=== PATIENT | female | born 1950 | race Caucasian/White ===

== ENCOUNTER 2016-06-18 13:49 | Observation (INO) | payer MEDICARE ==
[~2016-06-18] VITALS: Ht 172.7 cm; Wt 77.7 kg
[~2016-06-18 13:49] MED LIST: ALPR.25T PO; ALPR0.254; AMLO5TAB2; AMX500CIP PO; ATEN50TA PO; BACL10TA PO; BPR150TCR PO; BSP10T PO; BUSP10TA95 PO; CEPH-507 PO; CYCL10TA9 PO; DOXY100C2 PO; DOXY150T9 PO; DULO60CA6 PO; GABA-488 PO; GABA600T2 PO; HYDR200T46 PO; Hydrochlorothiazide PO; IBP800T PO; IBUP800T26 PO; LORA10CA PO; LOSA1TAB20 PO; LOSA50TA6 PO; METO-274 PO; Metoprolol Succinate PO; NITR100C3 PO; ONDA4TAB2 PO; ONDN4T PO; PNT40TEC PO; PRM25T PO; TRAM50TA2 PO; TRAZ150T42 PO; TRZ100T PO
[2016-06-18] MEDS ORDERED: LACTATED RINGERS 1,000 ML IV ONE ×2 (14:28→18:39)
--- NOTE | 2016-06-18 14:35 | ED Psychosocial ---
General Chief Complaint: Substance Abuse Stated Complaint: INTOXICATED Nursing Triage Note: c/o etoh intoxication. Pt being loud and obnoxious. Pt apparently had been drinking vodka. Source: patient (POOR HISTORIAN--UNABLE TO OBTAIN ANY SIGNIFICANT INFORMATION FROM PT DUE TO INTOXICATION--PT REPEATS PHRASES OVER AND OVER, AND DOES NOT ANSWER MANY QUESTIONS ), EMS History of Present Illness Time seen by provider: 14:15 Initial Comments PT ARRIVES VIA EMS FROM HOME EMS STATES THAT THEY WERE CALLED TO ASSIST PT INTO HOME PT IS INTOXICATED AT SOME POINT, THE PT TOLD EMS SHE WANTED TO , AND HAD TOLD THE SAME TO POLICE WHO WERE AT THE SCENE PRIOR TO EMS ARRIVAL THERE. 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 ), " I'M DRUNK" "I'M AN ALCOHOLIC" PCP: DR. LYON Allergies and Home Medications Allergies Coded Allergies: No Known Drug Allergies (Unverified , 08/08/13) Home Medications 25 MG TAB #30 25 MG PO DAILY@0900 Prescribed by: BIANCA BENAVIDES on 09/21/14 1308 Cephalexin 500 Mg Capsule #21 500 MG PO TID Prescribed by: ANNELISE SANTOS on 07/20/15 2218 Cyclobenzaprine Hcl 10 Mg Tablet 10 MG PO TID (Reported) Doxycycline Hyclate 100 Mg Capsule 100 MG PO BID PRN PRN INFECTION (Reported) Duloxetine Hcl 60 Mg Capsule.dr 60 MG PO DAILY (Reported) 08-12-14 #30 LAST FILL Gabapentin 600 Mg Tablet #270 1 MG PO TID (Reported) Hydroxychloroquine Sulfate 200 Mg Tab 200 MG PO TID PRN PRN INFECTION (Reported ) Ibuprofen 800 Mg Tablet 800 MG PO TID PRN PRN PAIN (Reported) 07-25-14 #90 LAST FILLED Losartan Potassium 50 Mg Tablet #30 100 MG PO DAILY Prescribed by: BIANCA BENAVIDES on 09/21/14 1308 Metoprolol Succinate 100 Mg Tab.er.24h #30 100 MG PO DAILY (Reported) Ondansetron Hcl 4 Mg Tablet 4 MG PO Q8H PRN PRN NAUSEA (Reported) 08-12-14 #30 LAST FILLED Pantoprazole Sod 40 Mg Tab 40 MG PO DAILY (Reported) Trazodone Hcl 150 Mg Tablet 150 MG PO HS (Reported) Constitutional: other (UNABLE TO OBTAIN FROM PT DUE TO INTOXICATION) Past Yeboced-Ocoihl-Xatgvv Hx Patient Social History Alcohol Use: Regular Use Recreational Drug Use: Yes (NONE RECENT.) Smoking Status: Current Everyday Smoker (1 PPD) Type Used: Cigarettes Recent Foreign Travel: No Contact w/Someone Who Travel: No Recent Infectious Disease Expo: No Physical Abuse Screen: No Sexual Abuse: No Immunizations Up To Date Tetanus Booster (TDap): Less than 5yrs Date of Pneumonia Vaccine: Jun 29, 2014 Date of Influenza Vaccine: Jun 29, 2014 Seasonal Allergies Seasonal Allergies: No Surgeries HX Surgeries: Yes (left mastectomy, plate in right arm, l4 l5 surgery) Surgeries: Breast Respiratory Hx Respiratory Disorders: No Respiratory Disorders: Pneumonia Cardiovascular Hx Cardiac Disorders: Yes Neurological Hx Neurological Disorders: No Reproductive System Hx Reproductive Disorders: No Sexually Transmitted Disease: No HIV/AIDS: No Female Reproductive Disorders: Denies Genitourinary Hx Genitourinary Disorders: No Gastrointestinal Hx Gastrointestinal Disorders: No Gastrointestinal Disorders: C-Diff Musculoskeletal Hx Musculoskeletal Disorders: Yes Musculoskeletal Disorders: Arthritis, Back Injury Endocrine Hx Endocrine Disorders: No HEENT HX ENT Disorders: Yes HEENT Disorders: Cataract, Glaucoma Loss of Vision: Left Hearing Impairment: Denies Cancer Hx Cancer: Yes (LEFT BREAST REMOVED.) Cancer: Breast Psychosocial Hx Psychiatric Problems: Yes Behavioral Health Disorders: Anxiety, Bipolar, Depression Integumentary HX Skin/Integumentary Disorder: No Blood Transfusions Hx Blood Disorders: No Adverse Reaction to a Blood Tr: No Family Medical History Other ALL OF THE ABOVE IS FROM OLD CHART--PT UNABLE TO GIVE ANY RELEVANT INFORMATION Family Medial History: Alcoholism Physical Exam Vital Signs Vital Sign - Last 12Hours 06/18/16 13:49 Temp 97.2 Pulse 86 Resp 16 B/P 125/83 Pulse Ox 97 O2 Delivery Room Air Capillary Refill : Less Than 3 Seconds General Appearance: WD/WN no apparent distress other (LOUD, CURSING, BELLIGERANT AT TIMES. SPEECH CLEAR, BUT TALKS NON-STOP AND REPEATS HERSELF MULTIPLE TIMES) HEENT: PERRL/EOMI normal ENT inspection Neck: normal inspection Respiratory: normal breath sounds no respiratory distress no accessory muscle use Cardiovascular: regular rate, rhythm no murmur Gastrointestinal: normal bowel sounds non tender soft no organomegaly Extremities: normal inspection no pedal edema no calf tenderness normal capillary refill Neurologic/Psychiatric: bargeman II-XII nml as tested no motor/sensory deficits alert other ( ABOVE) Behavior/Eye Contact: cooperative Thoughts/Hallucinations: no apparent hallucination Skin: normal color warm/dry Progress/Results/Core Measures Results/Orders Lab Results Laboratory Tests Test 06/18/16 14:25 06/18/16 15:35 Range/Units Alanine Aminotransferase (ALT/SGPT) 26 0-55 U/L Albumin 4.0 3.2-4.5 G/DL Alkaline Phosphatase 69 40-136 U/L Anion Gap 20 H 5-14 MMOL/L Aspartate Amino Transf (AST/SGOT) 32 5-34 U/L BUN/Creatinine Ratio 19 Basophils # (Auto) 0.0 0.0-0.1 10^3/uL Basophils (%) (Auto) 0 0-10 % Blood Urea Nitrogen 16 7-18 MG/DL Calcium Level 8.8 8.5-10.1 MG/DL Carbon Dioxide Level 17 L 21-32 MMOL/L Chloride Level 103 98-107 MMOL/L Creatinine 0.86 0.60-1.30 MG/DL Eosinophils # (Auto) 0.3 0.0-0.3 10^3/uL Eosinophils (%) (Auto) 3 0-10 % Estimat Glomerular Filtration Rate > 60 Glucose Level 82 70-105 MG/DL Hematocrit 40 35-52 % Hemoglobin 13.6 11.5-16.0 G/DL Lymphocytes # (Auto) 3.9 1.0-4.0 X 10^3 Lymphocytes (%) (Auto) 42 12-44 % Magnesium Level 1.9 1.8-2.4 MG/DL Mean Corpuscular Hemoglobin 30 25-34 PG Mean Corpuscular Hemoglobin Concent 34 32-36 G/DL Mean Corpuscular Volume 87 80-99 FL Mean Platelet Volume 9.3 7.4-10.4 FL Monocytes # (Auto) 0.3 0.0-1.0 X 10^3 Monocytes (%) (Auto) 3 0-12 % Neutrophils # (Auto) 4.8 1.8-7.8 X 10^3 Neutrophils (%) (Auto) 52 42-75 % Platelet Count 293 130-400 10^3/uL Potassium Level 4.3 3.6-5.0 MMOL/L Red Blood Count 4.61 4.35-5.85 10^6/uL Red Cell Distribution Width 13.5 10.0-14.5 % Serum Alcohol 280 H <10 MG/DL Sodium Level 140 135-145 MMOL/L TSH [place] Testing 1.02 0.35-4.94 UIU/ML Total Bilirubin 0.2 0.1-1.0 MG/DL Total Protein 6.8 6.4-8.2 G/DL White Blood Count 9.2 4.3-11.0 10^3/uL Ur Tricyclic Antidepressants Screen NEGATIVE NEGATIVE Urine Amphetamines Screen NEGATIVE NEGATIVE Urine Bacteria NEGATIVE /HPF Urine Barbiturates Screen NEGATIVE NEGATIVE Urine Benzodiazepines Screen NEGATIVE NEGATIVE Urine Bilirubin NEGATIVE NEGATIVE Urine Cannabinoids Screen NEGATIVE NEGATIVE Urine Casts NONE /LPF Urine Clarity CLEAR Urine Cocaine Screen NEGATIVE NEGATIVE Urine Color YELLOW Urine Crystals NONE /LPF Urine Culture Indicated NO Urine Glucose (UA) NEGATIVE NEGATIVE Urine Ketones NEGATIVE NEGATIVE Urine Leukocyte Esterase NEGATIVE NEGATIVE Urine Methadone Screen NEGATIVE NEGATIVE Urine Methamphetamines Screen NEGATIVE NEGATIVE Urine Mucus NEGATIVE /LPF Urine Nitrite NEGATIVE NEGATIVE Urine Opiates Screen NEGATIVE NEGATIVE Urine Oxycodone Screen POSITIVE H NEGATIVE Urine Phencyclidine Screen NEGATIVE NEGATIVE Urine Propoxyphene Screen NEGATIVE NEGATIVE Urine Protein NEGATIVE NEGATIVE Urine RBC NONE /HPF Urine RBC (Auto) NEGATIVE NEGATIVE Urine Specific [place] 1.010 L 1.016-1.022 Urine Squamous Epithelial Cells 10-25 H /HPF Urine Urobilinogen NORMAL NORMAL MG/DL Urine WBC NONE /HPF Urine pH 6 5-9 My Orders Orders-CHRIS ESCALANTE DO Saline Lock/Iv-Start (06/18/16 14:28) Alcohol (06/18/16 14:28) Cbc With Automated Diff (06/18/16 14:28) Comprehensive Metabolic Panel (06/18/16 14:28) Drug Screen Stat (Urine) (06/18/16 14:28) Magnesium (06/18/16 14:28) Thyroid Analyzer (06/18/16 14:28) Ua Culture If Indicated (06/18/16 14:28) Saline Lock/Iv-Start (06/18/16 14:28) Lactated Ringers (Lr 1000 Ml Iv Solution (06/18/16 14:28) Medications Given in ED Current Medications Medications Dose Ordered Sig/Rabia Route Start Time Stop Time Status Last Admin Dose Admin Lactated Ringer's 1,000 ml @ 0 mls/hr Q0M ONCE IV 06/18/16 14:28 06/18/16 14:30 DC 06/18/16 16:32 100 MLS/HR Vital Signs/I&O Vital Sign - Last 12Hours 06/18/16 06/18/16 13:49 17:46 Temp 97.2 Pulse 86 76 Resp 16 16 B/P 125/83 Pulse Ox 97 97 O2 Delivery Room Air Room Air Progress Note : Progress Note NO DETERIORATION IN PT'S CONDITION DURING ER STAY Departure Communication Progress Notes 3121--SPOKE WITH DR. JOSEPH, ACCEPTS PT FOR ADMIT. Impression Impression: Primary Impression: Alcohol intoxication Additional Impression: Alcohol abuse Disposition: ADMITTED INPATIENT Condition: Stable/Unchanged Decision to Admit Reason: Admit from ER (General) Decision to Admit/Date: Jun 18, 2016 Time/Decision to Admit Time: 15:35 Departure-Patient Inst. Referrals: TANIKA LYON MD (PCP/Family) Primary Care Physician CHRIS ESCALANTE DO Jun 18, 2016 14:35
[2016-06-18 14:36] LABS: BASOPHILS % (AUTO) 0 % (0-10); EOSINOPHILS # (AUTO) 0.3 10^3/uL (0.0-0.3); EOSINOPHILS % (AUTO) 3 % (0-10); LYMPHOCYTES # (AUTO) 3.9 X 10^3 (1.0-4.0); LYMPHOCYTES % (AUTO) 42 % (12-44); MEAN CORPUSCULAR HEMOGLOBIN 30 PG (25-34); MEAN CORPUSCULAR HGB CONC 34 G/DL (32-36); MEAN CORPUSCULAR VOLUME 87 FL (80-99); MEAN PLATELET VOLUME 9.3 FL (7.4-10.4); MONOCYTES # (AUTO) 0.3 X 10^3 (0.0-1.0); MONOCYTES % (AUTO) 3 % (0-12); NEUTROPHILS # (AUTO) 4.8 X 10^3 (1.8-7.8); NEUTROPHILS % (AUTO) 52 % (42-75); PLATELET COUNT 293 10^3/uL (130-400); RED BLOOD COUNT 4.61 10^6/uL (4.35-5.85); RED CELL DISTRIBUTION WIDTH 13.5 % (10.0-14.5); WHITE BLOOD COUNT 9.2 10^3/uL (4.3-11.0)
[2016-06-18 14:56] LABS: ALANINE AMINOTRANSFERASE 26 U/L (0-55); ALCOHOL 280 MG/DL (<10); ANION GAP 20 MMOL/L (5-14); ASPARTATE AMINO TRANSFERASE 32 U/L (5-34); BILIRUBIN,TOTAL 0.2 MG/DL (0.1-1.0); BLOOD UREA NITROGEN 16 MG/DL (7-18); BUN/CREATININE RATIO 19; CALCIUM 8.8 MG/DL (8.5-10.1); CARBON DIOXIDE 17 MMOL/L (21-32); CHLORIDE 103 MMOL/L (98-107); CREATININE SERUM 0.86 MG/DL (0.60-1.30); GFR ESTIMATED > 60; GLUCOSE 82 MG/DL (70-105); MAGNESIUM 1.9 MG/DL (1.8-2.4); POTASSIUM 4.3 MMOL/L (3.6-5.0); SODIUM 140 MMOL/L (135-145); TOTAL PROTEIN 6.8 G/DL (6.4-8.2)
[2016-06-18 15:42] LABS: BILIRUBIN,URINE NEGATIVE (NEGATIVE); KETONES,URINE NEGATIVE (NEGATIVE); LEUKOCYTE ESTERASE ,URINE NEGATIVE (NEGATIVE); NITRITE,URINE NEGATIVE (NEGATIVE); PH,URINE 6 (5-9); PROTEIN,URINE NEGATIVE (NEGATIVE); UROBILINOGEN,URINE NORMAL (NORMAL)
[2016-06-18 18:05] VITALS: BP 167/95
[2016-06-18 19:00] VITALS: BP 149/63
[2016-06-18 20:00] VITALS: BP 146/84
[2016-06-18] MEDS ORDERED: IBUPROFEN TABLET 200 MG TAB PO ONE (21:14)
[2016-06-18] MEDS: THIAMINE 100 MG (VITAMIN B-1) TAB PO SCH (21:23)
[2016-06-18] MEDS: FOLIC ACID 1 MG TAB PO SCH (21:23)
[2016-06-18] MEDS: MAGNESIUM OXIDE (MAG-OX)400 MG TAB PO SCH (21:23)
[2016-06-18] MEDS: IBUPROFEN 600 MG (MOTRIN) TAB PO PRN (21:27)
[2016-06-18] MEDS: MULTIVIT W/MINERALS TAB (THERAGRAN M) PO SCH (21:27)
[2016-06-18 22:23] VITALS: BP 138/80
[2016-06-18 23:24] VITALS: BP 133/76
[2016-06-18] MEDS: LACTATED RINGERS 1,000 ML IV SCH (23:55)
[2016-06-19] MEDS: ONDANSETRON 4 MG/2 ML (SDV) Z0FRAN IVP PRN ×2 (00:39→08:08)
[2016-06-19] MEDS: LACTATED RINGERS 1,000 ML IV SCH ×2 (01:30→04:56)
[2016-06-19] MEDS: IBUPROFEN 600 MG (MOTRIN) TAB PO PRN (03:24)
[2016-06-19 04:00] VITALS: BP 166/84
[2016-06-19] MEDS: MULTIVIT W/MINERALS TAB (THERAGRAN M) PO SCH (06:30)
[2016-06-19] MEDS: THIAMINE 100 MG (VITAMIN B-1) TAB PO SCH (06:30)
[2016-06-19] MEDS ORDERED: MULTIVIT W/MINERALS TAB (THERAGRAN M) PO SCH (07:00)
[2016-06-19] MEDS ORDERED: THIAMINE 100 MG (VITAMIN B-1) TAB PO SCH (07:00)
[2016-06-19 08:00] VITALS: BP 153/83
[2016-06-19] MEDS ORDERED: FOLIC ACID 1 MG TAB PO SCH (09:00)
[2016-06-19] MEDS: MAGNESIUM OXIDE (MAG-OX)400 MG TAB PO SCH (09:28)
[2016-06-19] MEDS: FOLIC ACID 1 MG TAB PO SCH (09:28)
--- NOTE | 2016-06-19 10:23 | Short Stay Summary ---
HPI History of Present Illness: 66 yo F known alcoholic that states she fell off the wagon for the new year. She is very interested in sobriety and states that she has been sober for a few months. Last night she was extremely intoxicated and states that she does not remember how much she had to drink. She was very confused and was unable to get in her house. She denies any other symptoms. This AM she is feeling much better. Has tolerated food and drink. Denies any withdrawal symptoms. Had a BM this am Source: patient, old records Exam Limitations: no limitations Date seen by provider: Jun 19, 2016 Time seen by provider: 09:15 Attending Physician Ale Al Bethany N MD Consult Date of Admission Jun 18, 2016 at 17:00 Home Medications Home Medications Reviewed patient Home Medication Reconciliation Form Allergies Coded Allergies: No Known Drug Allergies (Unverified , 08/08/13) SUJ-Pjrbui-Zreizu Hx Patient Social History Alcohol Use: Regular Use Recreational Drug Use: No Smoking Status: Current Everyday Smoker Type Used: Cigarettes Recent Foreign Travel: No Contact w/other who traveled: No Recent Hopitalizations: No Recent Infectious Disease Expo: No Physical Abuse Screen: No Sexual Abuse: No Immunizations Up To Date Tetanus Booster (TDap): Less than 5yrs Date of Pneumonia Vaccine: Apr 18, 2016 Date of Influenza Vaccine: Mar 18, 2016 Past Medical History Alcohol Abuse Bipolar Disorder Family Medical History Family History: Alcoholism Review of Systems ([facility]) Constitutional: no symptoms reportedNo chills, No dizziness, No fever, No weakness EENTM: no symptoms reported Respiratory: no symptoms reportedNo cough, No dyspnea on exertion, No hemoptysis, No short of breath Cardiovascular: no symptoms reportedNo chest pain, No edema, No palpitations Gastrointestinal: no symptoms reportedNo constipation, No diarrhea, No hematemesis, No heartburn, nauseaNo vomiting Genitourinary: no symptoms reportedNo dysuria, No frequency, No hematuria : No Musculoskeletal: no symptoms reportedNo back pain, No joint pain Skin: no symptoms reportedNo rash Psychiatric/Neurological: Anxiety HeadacheDenies Numbness, Denies Seizure, Denies Weakness All Other Systems Reviewed Negative Unless Noted: Yes Reviewed Test Results Reviewed Test Results Lab Laboratory Tests Test 06/18/16 14:25 06/18/16 15:35 Range/Units Alanine Aminotransferase (ALT/SGPT) 26 0-55 U/L Albumin 4.0 3.2-4.5 G/DL Alkaline Phosphatase 69 40-136 U/L Anion Gap 20 H 5-14 MMOL/L Aspartate Amino Transf (AST/SGOT) 32 5-34 U/L BUN/Creatinine Ratio 19 Basophils # (Auto) 0.0 0.0-0.1 10^3/uL Basophils (%) (Auto) 0 0-10 % Blood Urea Nitrogen 16 7-18 MG/DL Calcium Level 8.8 8.5-10.1 MG/DL Carbon Dioxide Level 17 L 21-32 MMOL/L Chloride Level 103 98-107 MMOL/L Creatinine 0.86 0.60-1.30 MG/DL Eosinophils # (Auto) 0.3 0.0-0.3 10^3/uL Eosinophils (%) (Auto) 3 0-10 % Estimat Glomerular Filtration Rate > 60 Glucose Level 82 70-105 MG/DL Hematocrit 40 35-52 % Hemoglobin 13.6 11.5-16.0 G/DL Lymphocytes # (Auto) 3.9 1.0-4.0 X 10^3 Lymphocytes (%) (Auto) 42 12-44 % Magnesium Level 1.9 1.8-2.4 MG/DL Mean Corpuscular Hemoglobin 30 25-34 PG Mean Corpuscular Hemoglobin Concent 34 32-36 G/DL Mean Corpuscular Volume 87 80-99 FL Mean Platelet Volume 9.3 7.4-10.4 FL Monocytes # (Auto) 0.3 0.0-1.0 X 10^3 Monocytes (%) (Auto) 3 0-12 % Neutrophils # (Auto) 4.8 1.8-7.8 X 10^3 Neutrophils (%) (Auto) 52 42-75 % Platelet Count 293 130-400 10^3/uL Potassium Level 4.3 3.6-5.0 MMOL/L Red Blood Count 4.61 4.35-5.85 10^6/uL Red Cell Distribution Width 13.5 10.0-14.5 % Serum Alcohol 280 H <10 MG/DL Sodium Level 140 135-145 MMOL/L TSH [place] Testing 1.02 0.35-4.94 UIU/ML Total Bilirubin 0.2 0.1-1.0 MG/DL Total Protein 6.8 6.4-8.2 G/DL White Blood Count 9.2 4.3-11.0 10^3/uL Ur Tricyclic Antidepressants Screen NEGATIVE NEGATIVE Urine Amphetamines Screen NEGATIVE NEGATIVE Urine Bacteria NEGATIVE /HPF Urine Barbiturates Screen NEGATIVE NEGATIVE Urine Benzodiazepines Screen NEGATIVE NEGATIVE Urine Bilirubin NEGATIVE NEGATIVE Urine Cannabinoids Screen NEGATIVE NEGATIVE Urine Casts NONE /LPF Urine Clarity CLEAR Urine Cocaine Screen NEGATIVE NEGATIVE Urine Color YELLOW Urine Crystals NONE /LPF Urine Culture Indicated NO Urine Glucose (UA) NEGATIVE NEGATIVE Urine Ketones NEGATIVE NEGATIVE Urine Leukocyte Esterase NEGATIVE NEGATIVE Urine Methadone Screen NEGATIVE NEGATIVE Urine Methamphetamines Screen NEGATIVE NEGATIVE Urine Mucus NEGATIVE /LPF Urine Nitrite NEGATIVE NEGATIVE Urine Opiates Screen NEGATIVE NEGATIVE Urine Oxycodone Screen POSITIVE H NEGATIVE Urine Phencyclidine Screen NEGATIVE NEGATIVE Urine Propoxyphene Screen NEGATIVE NEGATIVE Urine Protein NEGATIVE NEGATIVE Urine RBC NONE /HPF Urine RBC (Auto) NEGATIVE NEGATIVE Urine Specific [place] 1.010 L 1.016-1.022 Urine Squamous Epithelial Cells 10-25 H /HPF Urine Urobilinogen NORMAL NORMAL MG/DL Urine WBC NONE /HPF Urine pH 6 5-9 Physical Exam-([facility]) Physical Exam Vital Signs VS - Last 72 Hours, by Label 06/18/16 06/18/16 06/18/16 06/18/16 13:49 17:46 18:00 18:05 Temp 97.2 97.8 Pulse 86 76 101 Resp 16 16 18 B/P 125/83 167/95 Pulse Ox 97 97 98 O2 Delivery Room Air Room Air Room Air Room Air 06/18/16 06/18/16 06/18/16 06/18/16 19:00 19:00 20:00 22:23 Temp 98.5 97.3 98.3 Pulse 96 95 94 95 Resp 18 16 16 B/P 149/63 146/84 138/80 Pulse Ox 96 98 96 O2 Delivery Room Air Room Air Room Air 06/18/16 06/19/16 06/19/16 06/19/16 23:24 01:00 04:00 07:00 Temp 97.6 97.7 Pulse 98 110 98 107 Resp 18 18 B/P 133/76 166/84 Pulse Ox 94 97 O2 Delivery Room Air Room Air 06/19/16 08:00 Temp 98.8 Pulse 106 Resp 16 B/P 153/83 Pulse Ox 97 O2 Delivery Room Air Capillary Refill : Less Than 3 Seconds General Appearance: WD/WN no apparent distress HEENT: PERRL/EOMI normal ENT inspection TMs normal pharynx normal Neck: non-tender full range of motion supple normal inspection Respiratory: chest non-tender lungs clear normal breath sounds no respiratory distress no accessory muscle use Cardiovascular: regular rate, rhythm no edema no gallop no JVD no murmur Gastrointestinal: normal bowel sounds non tender soft no organomegaly no pulsatile massNo distended, No tenderness Extremities: normal range of motion non-tender normal inspection no calf tenderness normal capillary refill other (trace edema equal bilaterally) Neurologic/Psychiatric: clay transporter II-XII nml as tested no motor/sensory deficits alert normal mood/affect oriented x 3 Skin: normal color warm/dry Lymphatic: no adenopathy Short Stay Diagnosis Discharge Diagnosis-Short Stay Admission Diagnosis Altered Mental status Alcohol Intoxication Final Discharge Diagnosis same as above Conclusion Plan 66 yo F with known alcoholism admitted for altered mental status 2/2 to acute intoxication Plan Altered Mental Status: At baseline this AM - Most likely 2/2 to acute intoxication Alcoholism with acute Intoxication - Discussed outpatient addiction treatment center at [facility], She is interested, Will send referral - Encouraged patient to call sponsor and go to AA meeting HTN: uncontrolled this AM - Restart home meds Dispo: Home today, will follow up on 06/27/[address] Hurtado Clinical Quality Measures DVT/VTE Risk/Contraindication: Risk Factor Score Per Nursin RFS Level Per Nursing on Admit: 3=High Copy Copies To 1: TANIKA HURTADO MD, HOLLY R MD Jun 19, 2016 10:22
--- NOTE | 2016-06-19 10:33 | Discharge Instructions ---
Discharge Inst-[facility] Discharge Medications New, Converted or Re-Newed RX: Other (No Scripts needed) Patient Instructions Goal/Follow Up Appt: You have a f/u appt with Dr Hurtado on Jun 27@ 120PM at [facility] - The outpatient treatment center will call you to set up follow up Patient Instructions: - Be sure to contact you sponsor and get to your AA meeting Return to The Hospital For: Fever Unable to keep down medications Chest pain Shortness of breath Activity & Diet Discharge Diet: No Restrictions Activity as Tolerated: Yes Orders-Post D/C & Referrals - Referral to outpatient addiction treatment at [facility] Copy Copies To 1: TANIKA HURTADO MD, HOLLY R MD Jun 19, 2016 10:33
[2016-06-19 11:45] VITALS: BP 153/83
== END 2016-06-19 10:29 | disposition home or self-care (01) ==
LOC: EDUNIT# 13:49 → ER 13:50 → UNDOADMOB 17:00 → 4TH 17:00
PROVIDERS: ADMIT Family Medicine; ATTEND Family Medicine
DX: F10.220 Alcohol dependence with intoxication, uncomplicated (principal); I10 Essential (primary) hypertension; F17.210 Nicotine dependence, cigarettes, uncomplicated
CPT/HCPCS: 36415; 80053; 80306; 80320; 81000; 83735; 84443; 85025; 96360; G0378

== ENCOUNTER 2016-11-21 23:07 | Emergency (ER) | payer MEDICARE ==
[~2016-11-21] VITALS: Ht 172.7 cm; Wt 90.7 kg
[2016-11-21] MEDS ORDERED: HYDR50TA76 PO (23:13)
--- NOTE | 2016-11-21 23:20 | ED Psychosocial ---
General Chief Complaint: Psych/Social Disorder Stated Complaint: DRUNK,SUICIDAL Nursing Triage Note: BROUGHT IN BY [facility] REPORTED THAT PT TOLD [place] [employer] SHE WISHES TO KILL HERSELF. Source: patient Exam Limitations: no limitations, intoxication History of Present Illness Time seen by provider: 23:12 Initial Comments Here with report of alcohol intoxication and apparently told the [place] police department that she had suicidal thoughts. She does not have specific plan and states maybe she would hang herself although she is not committed to that. She reports that she has been depressed for 10 years because of her bipolar disorder. Does admit to drinking quite a bit of alcohol tonight. States she does not really want to stay. Denies any other concerns or injuries. Timing/Duration: this evening Severity: moderate Associated Symptoms: other (intoxication with suicidal expressions) Allergies and Home Medications Allergies Coded Allergies: No Known Drug Allergies (Unverified , 08/08/13) Home Medications Gabapentin 600 Mg Tablet, 1 MG PO TID, #270 (Reported) Hydroxychloroquine Sulfate 200 Mg Tab, 200 MG PO TID, (Reported) Hydroxyzine HCl 50 Mg Tablet, #90 (Reported) Losartan Potassium 50 Mg Tablet, 100 MG PO DAILY, #30 Ref 1 Prescribed by: BIANCA BENAVIDES on 09/21/14 1308 Metoprolol Succinate 100 Mg Tab.er.24h, 100 MG PO HS, #30 (Reported) Pantoprazole Sod 40 Mg Tab, 40 MG PO DAILY, (Reported) Trazodone Hcl 150 Mg Tablet, 150 MG PO HS, (Reported) [Hydrochlorothiazide] 25 MG TAB, 25 MG PO DAILY@0900, #30 Ref 1 Prescribed by: BIANCA BENAVIDES on 09/21/14 1308 Date Seen by Provider: Nov 21, 2016 Time Seen by Provider: 23:12 Constitutional: see HPI EENTM: no symptoms reported Respiratory: no symptoms reported Cardiovascular: no symptoms reported Gastrointestinal: no symptoms reported Genitourinary: no symptoms reported Musculoskeletal: no symptoms reported Skin: no symptoms reported Psychiatric/Neurological: See HPI, Anxiety, Emotional Problems Past Lsrvikk-Qkjpxh-Dpvgff Hx Patient Social History Alcohol Use: Regular Use Recreational Drug Use: Yes Smoking Status: Current Everyday Smoker Type Used: Cigarettes 2nd Hand Smoke Exposure: Yes Recent Foreign Travel: No Contact w/Someone Who Travel: No Recent Infectious Disease Expo: No Recent Hopitalizations: No Immunizations Up To Date Tetanus Booster (TDap): Less than 5yrs Date of Pneumonia Vaccine: Apr 18, 2016 Date of Influenza Vaccine: Mar 18, 2016 Seasonal Allergies Seasonal Allergies: No Surgeries HX Surgeries: Yes (left mastectomy, plate in right arm, l4 l5 surgery) Surgeries: Breast Respiratory Hx Respiratory Disorders: No Respiratory Disorders: Pneumonia Cardiovascular Hx Cardiac Disorders: Yes Cardiac Disorders: Hypertension Neurological Hx Neurological Disorders: No Reproductive System : No Hx Reproductive Disorders: No Sexually Transmitted Disease: No HIV/AIDS: No Female Reproductive Disorders: Denies INFORMATION TECHNOLOGY ADVISOR History: Menopausal Genitourinary Hx Genitourinary Disorders: No Gastrointestinal Hx Gastrointestinal Disorders: Yes Gastrointestinal Disorders: Gastroesophageal Reflux, C-Diff Musculoskeletal Hx Musculoskeletal Disorders: Yes Musculoskeletal Disorders: Arthritis, Back Injury Endocrine Hx Endocrine Disorders: No HEENT HX ENT Disorders: Yes HEENT Disorders: Cataract, Glaucoma Loss of Vision: Left Hearing Impairment: Denies Cancer Hx Cancer: Yes (LEFT BREAST REMOVED.) Cancer: Breast Psychosocial Hx Psychiatric Problems: Yes Behavioral Health Disorders: Anxiety, Bipolar, Depression Integumentary HX Skin/Integumentary Disorder: No Blood Transfusions Hx Blood Disorders: No Adverse Reaction to a Blood Tr: No Reviewed Nursing Assessment Reviewed/Agree w Nursing PMH: Yes Family Medical History Family Medial History: Alcoholism Physical Exam Vital Signs Vital Sign - Last 12Hours 11/21/16 23:13 Temp 97.1 Pulse 89 Resp 18 B/P (MAP) 141/94 Pulse Ox 97 O2 Delivery Room Air Capillary Refill : Less Than 3 Seconds General Appearance: WD/WN, no apparent distress HEENT: PERRL/EOMI, pharynx normal Neck: full range of motion, supple Respiratory: lungs clear, normal breath sounds Cardiovascular: regular rate, rhythm, no murmur Gastrointestinal: non tender, soft Extremities: normal range of motion, non-tender, normal inspection Neurologic/Psychiatric: alert, oriented x 3 Appearance/Memory: disheveled Behavior/Eye Contact: other (occasionally belligerent but calms when spoken to softly. Somewhat slurred speech but answers all questions and follows commands appropriately.) Thoughts/Hallucinations: no apparent hallucination Skin: normal color, warm/dry Progress/Results/Core Measures Results/Orders Lab Results Laboratory Tests Test 11/21/16 23:20 Range/Units White Blood Count 7.4 4.3-11.0 10^3/uL Red Blood Count 4.54 4.35-5.85 10^6/uL Hemoglobin 13.4 11.5-16.0 G/DL Hematocrit 41 35-52 % Mean Corpuscular Volume 91 80-99 FL Mean Corpuscular Hemoglobin 30 25-34 PG Mean Corpuscular Hemoglobin Concent 33 32-36 G/DL Red Cell Distribution Width 15.6 H 10.0-14.5 % Platelet Count 257 130-400 10^3/uL Mean Platelet Volume 8.6 7.4-10.4 FL Neutrophils (%) (Auto) 29 L 42-75 % Lymphocytes (%) (Auto) 59 H 12-44 % Monocytes (%) (Auto) 6 0-12 % Eosinophils (%) (Auto) 4 0-10 % Basophils (%) (Auto) 1 0-10 % Neutrophils # (Auto) 2.2 1.8-7.8 X 10^3 Lymphocytes # (Auto) 4.4 H 1.0-4.0 X 10^3 Monocytes # (Auto) 0.5 0.0-1.0 X 10^3 Eosinophils # (Auto) 0.3 0.0-0.3 10^3/uL Basophils # (Auto) 0.1 0.0-0.1 10^3/uL Sodium Level 148 H 135-145 MMOL/L Potassium Level 3.8 3.6-5.0 MMOL/L Chloride Level 112 H 98-107 MMOL/L Carbon Dioxide Level 21 21-32 MMOL/L Anion Gap 15 H 5-14 MMOL/L Blood Urea Nitrogen 12 7-18 MG/DL Creatinine 0.92 0.60-1.30 MG/DL Estimat Glomerular Filtration Rate > 60 BUN/Creatinine Ratio 13 Glucose Level 86 70-105 MG/DL Calcium Level 9.1 8.5-10.1 MG/DL Total Bilirubin 0.2 0.1-1.0 MG/DL Aspartate Amino Transf (AST/SGOT) 26 5-34 U/L Alanine Aminotransferase (ALT/SGPT) 19 0-55 U/L Alkaline Phosphatase 87 40-136 U/L Total Protein 6.9 6.4-8.2 G/DL Albumin 3.9 3.2-4.5 G/DL Salicylates Level < 5.0 L 5.0-20.0 MG/DL Acetaminophen Level < 10 L 10-30 UG/ML Serum Alcohol 332 *H <10 MG/DL My Orders Orders - ELI MCDONALD MD Ua Culture If Indicated (11/21/16 23:17) Cbc With Automated Diff (11/21/16 23:17) Comprehensive Metabolic Panel (11/21/16 23:17) Alcohol (11/21/16 23:17) Drug Screen Stat (Urine) (11/21/16 23:17) Acetaminophen (11/21/16 23:17) Salicylate (11/21/16 23:17) Ekg Tracing (11/21/16 23:17) Saline Lock/Iv-Start (11/21/16 23:17) Vital Signs/I&O Vital Sign - Last 12Hours 11/21/16 11/22/16 23:13 00:32 Temp 97.1 97.1 Pulse 89 103 Resp 18 20 B/P (MAP) 141/94 Pulse Ox 97 97 O2 Delivery Room Air Blood Pressure Mean: 110 Progress Note : Progress Note Seen and evaluated. States that she doesn't really want help but would be okay with exam and evaluation. This was initiated. EKG, labs and UA ordered. Monitor patient. 2340: Patient states that she is no longer suicidal and wants to go home. 0015: Patient is requesting a cab and again states that she is not suicidal. Labs reviewed. Patient did not give urine sample. ECG Initial ECG Impression Date: Nov 22, 2016 Initial ECG Impression Time: 23:22 Initial ECG Rate: 88 Initial ECG Rhythm: Normal Sinus Comment Sinus rhythm with normal axis and no evidence of ST elevation HI. Similar to previous of 07/20/15. Interpreted by me. Departure Impression Impression: Primary Impression: Alcohol abuse Additional Impression: Alcohol intoxication Qualified Codes: F10.920 - Alcohol use, unspecified with intoxication, uncomplicated Disposition: 01 HOME, SELF-CARE Condition: Stable Departure-Patient Inst. Decision time for Depature: 00:20 Referrals: TANIKA LYON MD (PCP/Family) Primary Care Physician Patient Instructions: ALCOHOL AND SUBSTANCE ABUSE Add. Discharge Instructions: All discharge instructions reviewed with patient and/or family. Voiced understanding. Refrain from drinking alcohol. Drink plenty of fluids. Eat a normal diet. Return for worse pain, fever, vomiting, weakness, breathing problems or other concerns as needed. Follow-up with your doctor and your mental health provider in one to 2 days for recheck and further evaluation. ELI MCDONALD MD Nov 21, 2016 23:20
[2016-11-21 23:31] LABS: BASOPHILS # (AUTO) 0.1 10^3/uL (0.0-0.1); BASOPHILS % (AUTO) 1 % (0-10); EOSINOPHILS # (AUTO) 0.3 10^3/uL (0.0-0.3); EOSINOPHILS % (AUTO) 4 % (0-10); LYMPHOCYTES # (AUTO) 4.4 X 10^3 (1.0-4.0); LYMPHOCYTES % (AUTO) 59 % (12-44); MEAN CORPUSCULAR HEMOGLOBIN 30 PG (25-34); MEAN CORPUSCULAR HGB CONC 33 G/DL (32-36); MEAN CORPUSCULAR VOLUME 91 FL (80-99); MEAN PLATELET VOLUME 8.6 FL (7.4-10.4); MONOCYTES # (AUTO) 0.5 X 10^3 (0.0-1.0); MONOCYTES % (AUTO) 6 % (0-12); NEUTROPHILS # (AUTO) 2.2 X 10^3 (1.8-7.8); NEUTROPHILS % (AUTO) 29 % (42-75); PLATELET COUNT 257 10^3/uL (130-400); RED BLOOD COUNT 4.54 10^6/uL (4.35-5.85); RED CELL DISTRIBUTION WIDTH 15.6 % (10.0-14.5); WHITE BLOOD COUNT 7.4 10^3/uL (4.3-11.0)
[2016-11-21 23:52] LABS: ALANINE AMINOTRANSFERASE 19 U/L (0-55); ALBUMIN 3.9 G/DL (3.2-4.5); ANION GAP 15 MMOL/L (5-14); ASPARTATE AMINO TRANSFERASE 26 U/L (5-34); BILIRUBIN,TOTAL 0.2 MG/DL (0.1-1.0); BLOOD UREA NITROGEN 12 MG/DL (7-18); BUN/CREATININE RATIO 13; CALCIUM 9.1 MG/DL (8.5-10.1); CARBON DIOXIDE 21 MMOL/L (21-32); CHLORIDE 112 MMOL/L (98-107); CREATININE SERUM 0.92 MG/DL (0.60-1.30); GFR ESTIMATED > 60; GLUCOSE 86 MG/DL (70-105); POTASSIUM 3.8 MMOL/L (3.6-5.0); SALICYLATE < 5.0 MG/DL (5.0-20.0); SODIUM 148 MMOL/L (135-145); TOTAL PROTEIN 6.9 G/DL (6.4-8.2)
[2016-11-21 23:55] LABS: ACETAMINOPHEN < 10 UG/ML (10-30)
[2016-11-21 23:56] LABS: ALCOHOL 332 MG/DL (<10)
[2016-11-22 00:32] VITALS: BP 135/101
[2016-11-23] MEDS ORDERED: HYDR25TA4 PO (08:30)
[2016-11-23] MEDS ORDERED: LOSA100T28 PO (08:30)
[2016-11-23] MEDS ORDERED: GABA-488 PO (08:30)
[2016-11-23] MEDS ORDERED: DULO60CA58 PO (08:30)
[2016-11-23] MEDS ORDERED: ONDA4TAB11 PO (08:37)
[2016-11-23] MEDS ORDERED: TIZA2TAB3 PO (08:37)
[2016-11-23] MEDS ORDERED: CALC-654 PO (08:38)
== END 2016-11-22 00:28 | disposition home or self-care (01) ==
LOC: EDUNIT# 23:07 → ER 23:08
DX: F10.129 Alcohol abuse with intoxication, unspecified (principal); F41.8 Other specified anxiety disorders; F31.9 Bipolar disorder, unspecified; I10 Essential (primary) hypertension; F17.210 Nicotine dependence, cigarettes, uncomplicated
CPT/HCPCS: 36415; 80053; 80320; 80329; 85025; 93005

== ENCOUNTER 2016-12-13 17:53 | Emergency (ER) | payer MEDICARE ==
[~2016-12-13] VITALS: Ht 172.7 cm; Wt 79.5 kg
[~2016-12-13 17:53] MED LIST changes: +CALC-654 PO; +DULO60CA58 PO; +HYDR25TA4 PO; +HYDR50TA76 PO; +LOSA100T28 PO; +ONDA4TAB11 PO; +TIZA2TAB3 PO
--- OUTSIDE RECORDS SUMMARY | 2016-12-13 18:01 | XMS REPORT | Continuity of Care Document ---
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 (number/volume) 0.5 10*3 0.0-1.0 Automated eosinophil count 0.3 10*3/uL 0.0-0.3 Automated blood basophil count (count/volume) 0.1 10*3/uL 0.0-0.1 Comprehensive metabolic panel - 11/21/16 23:20 Serum or plasma sodium measurement (moles/volume) 148 mmol/ L 135-145 Serum or plasma potassium measurement (moles/volume) 3.8 mmol/L 3.6-5.0 Serum or plasma chloride measurement (moles/volume) 112 mmol /L 98-107 Carbon dioxide 21 mmol/L 21-32 Serum or plasma anion gap determination (moles/volume) 15 mmol/L 5-14 Serum or plasma urea nitrogen measurement (mass/volume) 12 mg/dL 7-18 Serum or plasma creatinine measurement (mass/volume) 0.92 mg /dL 0.60-1.30 Serum or plasma urea nitrogen/creatinine mass ratio 13 NRG Serum or plasma creatinine measurement with calculation of estimated glomerular filtration rate > NRG Serum or plasma glucose measurement (mass/volume) 86 mg/dL 70-105 Serum or plasma calcium measurement (mass/volume) 9.1 mg/dL 8.5-10.1 Serum or plasma total bilirubin measurement (mass/volume) 0.2 mg/dL 0.1-1.0 Serum or plasma alkaline phosphatase measurement (enzymatic activity/volume) 87 U/L 40-136 Serum or plasma aspartate aminotransferase measurement (enzymatic activity/ volume) 26 U/L 5-34 Serum or plasma alanine aminotransferase measurement (enzymatic activity/volume ) 19 U/L 0-55 Serum or plasma protein measurement (mass/volume) 6.9 g/dL 6.4-8.2 Serum or plasma albumin measurement (mass/volume) 3.9 g/dL 3.2-4.5 Serum or plasma salicylates measurement (mass/volume) - 11/21/16 23:20 Serum or plasma salicylates measurement (mass/volume) < mg/ dL 5.0-20.0 Serum or plasma acetaminophen measurement (mass/volume) - 11/21/16 23:20 Serum or plasma acetaminophen measurement (mass/volume) < ug /mL 10-30 Serum or plasma ethanol measurement (mass/volume) - 11/21/16 23:20 Serum or plasma ethanol measurement (mass/volume) 332 mg/dL <10 Complete blood count (CBC) with automated white blood cell (WBC) differential - 11/22/16 21:55 Blood leukocytes automated count (number/volume) 7.2 10*3/ uL 4.3-11.0 Blood erythrocytes automated count (number/volume) 5.01 10*6 /uL 4.35-5.85 Venous blood hemoglobin measurement (mass/volume) 14.8 g/dL 11.5-16.0 Blood hematocrit (volume fraction) 45 % 35-52 Automated erythrocyte mean corpuscular volume 90 [foz_us] 80-99 Automated erythrocyte mean corpuscular hemoglobin (mass per erythrocyte) 30 pg 25-34 Automated erythrocyte mean corpuscular hemoglobin concentration measurement ( mass/volume) 33 g/dL 32-36 Automated erythrocyte distribution width ratio 15.9 % 10.0-14.5 Automated blood platelet count (count/volume) 290 10*3/uL 130-400 Automated blood platelet mean volume measurement 9.0 [foz_us ] 7.4-10.4 Automated blood neutrophils/100 leukocytes 44 % 42-75 Automated blood lymphocytes/100 leukocytes 46 % 12-44 Blood monocytes/100 leukocytes 6 % 0-12 Automated blood eosinophils/100 leukocytes 4 % 0-10 Automated blood basophils/100 leukocytes 1 % 0-10 Blood neutrophils automated count (number/volume) 3.1 10*3 1.8-7.8 Blood lymphocytes automated count (number/volume) 3.3 10*3 1.0-4.0 Blood monocytes automated count (number/volume) 0.4 10*3 0.0-1.0 Automated eosinophil count 0.3 10*3/uL 0.0-0.3 Automated blood basophil count (count/volume) 0.1 10*3/uL 0.0-0.1 Comprehensive metabolic panel - 11/22/16 21:55 Serum or plasma sodium measurement (moles/volume) 146 mmol/ L 135-145 Serum or plasma potassium measurement (moles/volume) 4.0 mmol/L 3.6-5.0 Serum or plasma chloride measurement (moles/volume) 108 mmol /L 98-107 Carbon dioxide 19 mmol/L 21-32 Serum or plasma anion gap determination (moles/volume) 19 mmol/L 5-14 Serum or plasma urea nitrogen measurement (mass/volume) 15 mg/dL 7-18 Serum or plasma creatinine measurement (mass/volume) 0.90 mg /dL 0.60-1.30 Serum or plasma urea nitrogen/creatinine mass ratio 17 NRG Serum or plasma creatinine measurement with calculation of estimated glomerular filtration rate > NRG Serum or plasma glucose measurement (mass/volume) 91 mg/dL 70-105 Serum or plasma calcium measurement (mass/volume) 9.5 mg/dL 8.5-10.1 Serum or plasma total bilirubin measurement (mass/volume) 0.2 mg/dL 0.1-1.0 Serum or plasma alkaline phosphatase measurement (enzymatic activity/volume) 101 U/L 40-136 Serum or plasma aspartate aminotransferase measurement (enzymatic activity/ volume) 35 U/L 5-34 Serum or plasma alanine aminotransferase measurement (enzymatic activity/volume ) 23 U/L 0-55 Serum or plasma protein measurement (mass/volume) 7.9 g/dL 6.4-8.2 Serum or plasma albumin measurement (mass/volume) 4.2 g/dL 3.2-4.5 Serum or plasma salicylates measurement (mass/volume) - 11/22/16 21:55 Serum or plasma salicylates measurement (mass/volume) < mg/ dL 5.0-20.0 Serum or plasma acetaminophen measurement (mass/volume) - 11/22/16 21:55 Serum or plasma acetaminophen measurement (mass/volume) < ug /mL 10-30 Serum or plasma ethanol measurement (mass/volume) - 11/22/16 21:55 Serum or plasma ethanol measurement (mass/volume) 259 mg/dL <10 Serum or plasma troponin i.cardiac measurement (mass/volume) - 11/22/16 21:55 Serum or plasma troponin i.cardiac measurement (mass/volume) < ng/mL <0.30 Complete blood count (CBC) with automated white blood cell (WBC) differential - 11/23/16 04:58 Blood leukocytes automated count (number/volume) 5.3 10*3/ uL 4.3-11.0 Blood erythrocytes automated count (number/volume) 4.17 10*6 /uL 4.35-5.85 Venous blood hemoglobin measurement (mass/volume) 12.3 g/dL 11.5-16.0 Blood hematocrit (volume fraction) 38 % 35-52 Automated erythrocyte mean corpuscular volume 91 [foz_us] 80-99 Automated erythrocyte mean corpuscular hemoglobin (mass per erythrocyte) 30 pg 25-34 Automated erythrocyte mean corpuscular hemoglobin concentration measurement ( mass/volume) 33 g/dL 32-36 Automated erythrocyte distribution width ratio 15.5 % 10.0-14.5 Automated blood platelet count (count/volume) 238 10*3/uL 130-400 Automated blood platelet mean volume measurement 9.0 [foz_us ] 7.4-10.4 Automated blood neutrophils/100 leukocytes 48 % 42-75 Automated blood lymphocytes/100 leukocytes 41 % 12-44 Blood monocytes/100 leukocytes 8 % 0-12 Automated blood eosinophils/100 leukocytes 3 % 0-10 Automated blood basophils/100 leukocytes 1 % 0-10 Blood neutrophils automated count (number/volume) 2.5 10*3 1.8-7.8 Blood lymphocytes automated count (number/volume) 2.2 10*3 1.0-4.0 Blood monocytes automated count (number/volume) 0.4 10*3 0.0-1.0 Automated eosinophil count 0.2 10*3/uL 0.0-0.3 Automated blood basophil count (count/volume) 0.1 10*3/uL 0.0-0.1 Comprehensive metabolic panel - 11/23/16 04:58 Serum or plasma sodium measurement (moles/volume) 141 mmol/ L 135-145 Serum or plasma potassium measurement (moles/volume) 3.4 mmol/L 3.6-5.0 Serum or plasma chloride measurement (moles/volume) 108 mmol /L 98-107 Carbon dioxide 19 mmol/L 21-32 Serum or plasma anion gap determination (moles/volume) 14 mmol/L 5-14 Serum or plasma urea nitrogen measurement (mass/volume) 14 mg/dL 7-18 Serum or plasma creatinine measurement (mass/volume) 0.87 mg /dL 0.60-1.30 Serum or plasma urea nitrogen/creatinine mass ratio 16 NRG Serum or plasma creatinine measurement with calculation of estimated glomerular filtration rate > NRG Serum or plasma glucose measurement (mass/volume) 146 mg/dL 70-105 Serum or plasma calcium measurement (mass/volume) 8.4 mg/dL 8.5-10.1 Serum or plasma total bilirubin measurement (mass/volume) 0.4 mg/dL 0.1-1.0 Serum or plasma alkaline phosphatase measurement (enzymatic activity/volume) 85 U/L 40-136 Serum or plasma aspartate aminotransferase measurement (enzymatic activity/ volume) 25 U/L 5-34 Serum or plasma alanine aminotransferase measurement (enzymatic activity/volume ) 18 U/L 0-55 Serum or plasma protein measurement (mass/volume) 6.2 g/dL 6.4-8.2 Serum or plasma albumin measurement (mass/volume) 3.5 g/dL 3.2-4.5 Complete urinalysis with reflex to culture - 11/23/16 10:40 Urine color determination YELLOW NRG Urine clarity determination CLEAR NRG Urine pH measurement by test strip 6.5 5 -9 Specific gravity of urine by test strip 1.015 1.016-1.022 Urine protein assay by test strip, semi-quantitative NEGATIVE NEGATIVE Urine glucose detection by automated test strip NEGATIVE NEGATIVE Erythrocytes detection in urine sediment by light microscopy 1+ NEGATIVE Urine ketones detection by automated test strip NEGATIVE NEGATIVE Urine nitrite detection by test strip NEGATIVE NEGATIVE Urine total bilirubin detection by test strip NEGATIVE NEGATIVE Urine urobilinogen measurement by automated test strip (mass/volume) NORMAL NORMAL Urine leukocyte esterase detection by dipstick NEGATIVE NEGATIVE Automated urine sediment erythrocyte count by microscopy (number/high power field) [HPF] NRG Automated urine sediment leukocyte count by microscopy (number/high power field ) RARE NRG Bacteria detection in urine sediment by light microscopy FEW NRG Squamous epithelial cells detection in urine sediment by light microscopy 0-2 NRG Crystals detection in urine sediment by light microscopy NONE NRG Casts detection in urine sediment by light microscopy NONE NRG Mucus detection in urine sediment by light microscopy NEGATIVE NRG Complete urinalysis with reflex to culture NO NRG Urine drug screening test - 11/23/16 10:40 Urine phencyclidine detection by screening method NEGATIVE NEGATIVE Urine benzodiazepines detection by screening method POSITIVE NEGATIVE Urine cocaine detection NEGATIVE NEGATIVE Urine amphetamines detection by screening method NEGATIVE NEGATIVE Urine methamphetamine detection by screening method NEGATIVE NEGATIVE Urine cannabinoids detection by screening method NEGATIVE NEGATIVE Urine opiates detection by screening method NEGATIVE NEGATIVE Urine barbiturates detection NEGATIVE NEGATIVE Screening urine tricyclic antidepressants detection NEGATIVE NEGATIVE Urine methadone detection by screening method NEGATIVE NEGATIVE Urine oxycodone detection NEGATIVE NEGATIVE Urine propoxyphene detection NEGATIVE NEGATIVE Encounters ACCT No. Visit Date/Time Discharge Status Pt. Type Provider Facility Loc./Unit Complaint [id number] 10/16/2014 12:16:00 10/16/2014 23: 59:59 CLS Outpatient BAILEE JOSEPH DO [id number] 09/30/2014 10:17:00 09/30/2014 23: 59:59 CLS Outpatient TANIKA LYON MD [id number] 09/01/2014 11:40:00 09/01/2014 23: 59:59 CLS Outpatient TANIKA LYON MD [id number] 07/15/2014 10:27:00 07/15/2014 23: 59:59 CLS Outpatient TANIKA LYON MD [id number] 06/25/2014 09:35:00 06/25/2014 23: 59:59 CLS Outpatient TANIKA LYON MD [id number] 06/03/2014 13:24:00 06/03/2014 23: 59:59 CLS Outpatient BAILEE JOSEPH DO [id number] 05/21/2014 14:23:00 05/21/2014 23: 59:59 CLS Outpatient TANIKA LYON MD [id number] 08/06/2012 09:06:00 08/06/2012 23: 59:59 CLS Outpatient [id number] 07/30/2012 09:09:00 07/30/2012 23: 59:59 CLS Outpatient
[2016-12-13 18:30] LABS: BASOPHILS # (AUTO) 0.1 10^3/uL (0.0-0.1); BASOPHILS % (AUTO) 1 % (0-10); EOSINOPHILS # (AUTO) 0.2 10^3/uL (0.0-0.3); EOSINOPHILS % (AUTO) 4 % (0-10); LYMPHOCYTES # (AUTO) 2.7 X 10^3 (1.0-4.0); LYMPHOCYTES % (AUTO) 50 % (12-44); MEAN CORPUSCULAR HEMOGLOBIN 30 PG (25-34); MEAN CORPUSCULAR HGB CONC 34 G/DL (32-36); MEAN CORPUSCULAR VOLUME 88 FL (80-99); MONOCYTES # (AUTO) 0.3 X 10^3 (0.0-1.0); MONOCYTES % (AUTO) 5 % (0-12); NEUTROPHILS # (AUTO) 2.1 X 10^3 (1.8-7.8); NEUTROPHILS % (AUTO) 41 % (42-75); PLATELET COUNT 292 10^3/uL (130-400); RED BLOOD COUNT 4.25 10^6/uL (4.35-5.85); RED CELL DISTRIBUTION WIDTH 14.8 % (10.0-14.5); WHITE BLOOD COUNT 5.3 10^3/uL (4.3-11.0)
[2016-12-13] MEDS ORDERED: IBUPROFEN TABLET 200 MG TAB PO STA (18:35)
--- NOTE | 2016-12-13 18:39 | ED Psychosocial ---
General Chief Complaint: Psych/Social Disorder Stated Complaint: INTOXICATED/SUICIDAL Nursing Triage Note: TO ED PER EMS WAS FOUND BY POLICE DEPT WANTING TO KILL SELL ON ADMIT REPORTS HAS BEEN DRINKING AND WANTS TO HARM SELF WHEN ASKED IF SHE HAD A PLAN STATES I DON NOT WANT TO DISCUSS IT NOW. PATIENT ALSO TO DISCUSS PMH Source: patient Exam Limitations: no limitations History of Present Illness Time seen by provider: 18:25 Initial Comments This 66-year-old woman presents to the emergency room with complaints of suicidal ideation. She was brought in by EMS after being found by police. She denies any suicidal ideation at the moment and denies any attempt or plan. She is clearly intoxicated and states she drank "too much vodka" today. She also complains of pain in the left foot and states she has not been able to ambulate on it. She states the left foot was x-rayed previously but I do not see x-rays on file at this hospital. Review of patient's chart reveals that this is her third encounter in November for alcohol-related issues. She was admitted November 22 for a similar scenario. The chart indicated she intended to enroll in outpatient alcohol rehabilitation. Allergies and Home Medications Allergies Coded Allergies: No Known Drug Allergies (Unverified , 08/08/13) Home Medications Calcium Carbonate/Vitamin D3 1 Each Tablet, 1 TAB PO DAILY, (Reported) Duloxetine HCl 60 Mg Capsule.dr, 60 MG PO DAILY, (Reported) Gabapentin 300 Mg Capsule, 300 MG PO TID PRN for BACK PAIN, (Reported) Hydrochlorothiazide 25 Mg Tablet, 25 MG PO DAILY, (Reported) Hydroxyzine HCl 50 Mg Tablet, 50 MG PO TID PRN for ANXIETY, (Reported) Losartan Potassium 100 Mg Tablet, 100 MG PO DAILY, (Reported) Metoprolol Succinate 100 Mg Tab.er.24h, 100 MG PO HS, (Reported) Ondansetron 4 Mg Tab.rapdis, 4 MG PO Q8H PRN for NAUSEA/VOMITING-1ST LINE, ( Reported) Pantoprazole Sod 40 Mg Tab, 40 MG PO DAILY, (Reported) Tizanidine HCl 2 Mg Tablet, 2 MG PO TID PRN for MUSCLE SPASMS, (Reported) Trazodone Hcl 150 Mg Tablet, 150 MG PO HS, (Reported) Constitutional: see HPI, other (intoxicated) EENTM: no symptoms reported, see HPI Respiratory: no symptoms reported Cardiovascular: no symptoms reported Gastrointestinal: no symptoms reported Genitourinary: no symptoms reported : No Musculoskeletal: no symptoms reported Skin: no symptoms reported Psychiatric/Neurological: See HPI Past Grqeyst-Rlqnhr-Zcaxyi Hx Patient Social History Alcohol Use: Regular Use Recreational Drug Use: Yes Smoking Status: Current Everyday Smoker Type Used: Cigarettes 2nd Hand Smoke Exposure: Yes Recent Foreign Travel: No Contact w/Someone Who Travel: No Recent Infectious Disease Expo: No Recent Hopitalizations: Yes (she was here [facility] for EtOH intoxication) Immunizations Up To Date Tetanus Booster (TDap): Less than 5yrs Date of Pneumonia Vaccine: Apr 18, 2016 Date of Influenza Vaccine: Mar 18, 2016 Seasonal Allergies Seasonal Allergies: No Surgeries HX Surgeries: Yes (left mastectomy, plate in right arm, l4 l5 surgery) Surgeries: Breast Respiratory Hx Respiratory Disorders: Yes Respiratory Disorders: Pneumonia Cardiovascular Hx Cardiac Disorders: Yes Cardiac Disorders: Hypertension Neurological Hx Neurological Disorders: No Reproductive System Hx Reproductive Disorders: No Sexually Transmitted Disease: No HIV/AIDS: No Female Reproductive Disorders: Denies [employer] History: Menopausal Genitourinary Hx Genitourinary Disorders: No Gastrointestinal Hx Gastrointestinal Disorders: Yes Gastrointestinal Disorders: Gastroesophageal Reflux, C-Diff Musculoskeletal Hx Musculoskeletal Disorders: Yes Musculoskeletal Disorders: Back Injury, Chronic Back Pain (herniated disks) Endocrine Hx Endocrine Disorders: No HEENT HX ENT Disorders: Yes HEENT Disorders: Cataract, Glaucoma Loss of Vision: Left Hearing Impairment: Denies Cancer Hx Cancer: Yes (LEFT BREAST REMOVED.) Cancer: Breast Psychosocial Hx Psychiatric Problems: Yes Behavioral Health Disorders: Anxiety, Bipolar, Depression Integumentary HX Skin/Integumentary Disorder: No Blood Transfusions Hx Blood Disorders: No Adverse Reaction to a Blood Tr: No Family Medical History Significant Family History: Cancer, Diabetes, Hypertension Family Medial History: Alcoholism Physical Exam Vital Signs Vital Sign - Last 12Hours 12/13/16 17:53 Temp 98.0 Pulse 100 Resp 18 B/P (MAP) 179/99 Pulse Ox 94 O2 Delivery Room Air Capillary Refill : Less Than 3 Seconds General Appearance: WD/WN, no apparent distress HEENT: PERRL/EOMI, normal ENT inspection Neck: normal inspection Respiratory: no respiratory distress, no accessory muscle use, wheezing (mild) Cardiovascular: regular rate, rhythm, no edema, no murmur Gastrointestinal: normal bowel sounds, non tender, soft Extremities: normal inspection, no pedal edema, other (tenderness to the left ankle and distal dorsal left foot. Ecchymosis near the dorsum of the bace of the middle toes.) Neurologic/Psychiatric: back tender fourdrinier II-XII nml as tested, no motor/sensory deficits, alert, other (intoxicated and intermittently belligerent) Appearance/Memory: appropriate appearance Behavior/Eye Contact: cooperative, good eye contact, normal speech Thoughts/Hallucinations: other (intoxicated and giving inconsistent history about suicidal ideation) Skin: normal color, warm/dry, ecchymosis (distal left foot) Progress/Results/Core Measures Results/Orders Lab Results Laboratory Tests Test 12/13/16 18:06 12/13/16 21:15 Range/Units White Blood Count 5.3 4.3-11.0 10^3/uL Red Blood Count 4.25 L 4.35-5.85 10^6/uL Hemoglobin 12.6 11.5-16.0 G/DL Hematocrit 38 35-52 % Mean Corpuscular Volume 88 80-99 FL Mean Corpuscular Hemoglobin 30 25-34 PG Mean Corpuscular Hemoglobin Concent 34 32-36 G/DL Red Cell Distribution Width 14.8 H 10.0-14.5 % Platelet Count 292 130-400 10^3/uL Mean Platelet Volume 9.0 7.4-10.4 FL Neutrophils (%) (Auto) 41 L 42-75 % Lymphocytes (%) (Auto) 50 H 12-44 % Monocytes (%) (Auto) 5 0-12 % Eosinophils (%) (Auto) 4 0-10 % Basophils (%) (Auto) 1 0-10 % Neutrophils # (Auto) 2.1 1.8-7.8 X 10^3 Lymphocytes # (Auto) 2.7 1.0-4.0 X 10^3 Monocytes # (Auto) 0.3 0.0-1.0 X 10^3 Eosinophils # (Auto) 0.2 0.0-0.3 10^3/uL Basophils # (Auto) 0.1 0.0-0.1 10^3/uL Sodium Level 145 135-145 MMOL/L Potassium Level 4.0 3.6-5.0 MMOL/L Chloride Level 109 H 98-107 MMOL/L Carbon Dioxide Level 24 21-32 MMOL/L Anion Gap 12 5-14 MMOL/L Blood Urea Nitrogen 11 7-18 MG/DL Creatinine 0.83 0.60-1.30 MG/DL Estimat Glomerular Filtration Rate > 60 BUN/Creatinine Ratio 13 Glucose Level 99 70-105 MG/DL Calcium Level 9.0 8.5-10.1 MG/DL Total Bilirubin 0.2 0.1-1.0 MG/DL Aspartate Amino Transf (AST/SGOT) 26 5-34 U/L Alanine Aminotransferase (ALT/SGPT) 19 0-55 U/L Alkaline Phosphatase 65 40-136 U/L Total Protein 6.8 6.4-8.2 GM/DL Albumin 3.6 3.2-4.5 GM/DL Thyroid Stimulating Hormone (TSH) 0.49 0.35-4.94 UIU/ML Salicylates Level < 5.0 L 5.0-20.0 MG/DL Acetaminophen Level < 10 L 10-30 UG/ML Serum Alcohol 347 *H <10 MG/DL Urine Color YELLOW Urine Clarity CLEAR Urine pH 6 5-9 Urine Specific [place] 1.010 L 1.016-1.022 Urine Protein NEGATIVE NEGATIVE Urine Glucose (UA) NEGATIVE NEGATIVE Urine Ketones NEGATIVE NEGATIVE Urine Nitrite NEGATIVE NEGATIVE Urine Bilirubin NEGATIVE NEGATIVE Urine Urobilinogen NORMAL NORMAL MG/DL Urine Leukocyte Esterase NEGATIVE NEGATIVE Urine RBC (Auto) NEGATIVE NEGATIVE Urine RBC NONE /HPF Urine WBC RARE /HPF Urine Squamous Epithelial Cells 2-5 /HPF Urine Crystals NONE /LPF Urine Bacteria NEGATIVE /HPF Urine Casts NONE /LPF Urine Mucus NEGATIVE /LPF Urine Culture Indicated NO Urine Opiates Screen POSITIVE H NEGATIVE Urine Oxycodone Screen NEGATIVE NEGATIVE Urine Methadone Screen NEGATIVE NEGATIVE Urine Propoxyphene Screen NEGATIVE NEGATIVE Urine Barbiturates Screen NEGATIVE NEGATIVE Ur Tricyclic Antidepressants Screen NEGATIVE NEGATIVE Urine Phencyclidine Screen NEGATIVE NEGATIVE Urine Amphetamines Screen NEGATIVE NEGATIVE Urine Methamphetamines Screen NEGATIVE NEGATIVE Urine Benzodiazepines Screen NEGATIVE NEGATIVE Urine Cocaine Screen NEGATIVE NEGATIVE Urine Cannabinoids Screen NEGATIVE NEGATIVE My Orders Orders - REBEKA PEREZ MD Acetaminophen (12/13/16 18:24) Alcohol (12/13/16 18:24) Cbc With Automated Diff (12/13/16 18:24) Comprehensive Metabolic Panel (12/13/16 18:24) Drug Screen Stat (Urine) (12/13/16 18:24) Salicylate (12/13/16 18:24) Thyroid Stimulating Hormone (12/13/16 18:24) Ua Culture If Indicated (12/13/16 18:24) Foot, Left, 3 Views (12/13/16 18:39) Ankle, Left, 3 Views (12/13/16 18:39) Chest 1 View, Ap/Pa Only (12/13/16 19:37) Vital Signs/I&O Vital Sign - Last 12Hours 12/13/16 21:42 Pulse 98 Resp 16 Pulse Ox 97 Blood Pressure Mean: 125 Progress Note : Progress Note Case was discussed with Dr. Lyon who states this type of behavior is cyclical for the patient. Generally as the patient josesito her mentation and suicidal ideation improve. Patient was observed for a few hours and indeed her mentation and suicidal ideation improved. She demonstrated ability to ambulate safely. She was ultimately dismissed home with instructions for close follow- up. Dr. Lyon will try to arrange the follow-up as an outpatient. ECG Initial ECG Impression Date: Dec 13, 2016 Initial ECG Impression Time: 18:01 Initial ECG Rate: 96 Initial ECG Rhythm: Normal Sinus Initial ECG Intervals: Normal Initial ECG Impression: Normal Comment Normal sinus rhythm with no ST elevation or depression. No axis deviation or abnormal intervals. Diagnostic Imaging Diagonstic Imaging: Xray Plain Films/CT/US/NM/MRI: ankle Comments x-ray viewed by me and report reviewed. See report below: NAME: BAILEE [facility]STA[facility]EDA [facility] REC#: [id number] PT STATUS: REG ER : 1950 PHYSICIAN: REBEKA PEREZ MD ADMIT DATE: 12/13/16/ER Draft Date of Exam:12/13/16 ANKLE, LEFT, 3 VIEWS EXAMINATION: Left ankle series. INDICATION: Twisted ankle. Pain and swelling. FINDINGS: There is some soft tissue swelling overlying both the lateral and medial aspect of the ankle. Distal tibia and fibula demonstrate no cortical disruption to suggest acute fracture. The talar dome is normal in morphology. The visualized bones of the foot are unremarkable. IMPRESSION: Ankle soft tissue swelling without acute fracture or evidence of traumatic malalignment. Dictated on workstation # [id number] Dict: 12/13/161908 Trans: 12/13/161913 AS6 [id number] Interpreted by: RUDDY CHOI MD Diagonstic Imaging: Xray Plain Films/CT/US/NM/MRI: other (Left foot) Comments x-ray of the left viewed by me and report reviewed. See report below: NAME: BAILEE [facility]STAÑEDA [facility] REC#: [id number] PT STATUS: REG ER : 1950 PHYSICIAN: REBEKA PEREZ MD ADMIT DATE: 12/13/16/ER Draft Date of Exam:12/13/16 FOOT, LEFT, 3 VIEWS INDICATION: Left foot pain. COMPARISON: Left ankle radiographs performed concurrently. TECHNIQUE: Three nonweightbearing views of the left foot. FINDINGS: No acute fracture or traumatic malalignment by nonweightbearing imaging. Mild degenerative changes of the great toe MTP joint are noted. Joint spaces are mildly narrowed at the tarsometatarsal articulations as well as within the midfoot. IMPRESSION: 1. No acute fracture or traumatic malalignment of the left foot. 2. 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 Dictated on workstation # [id number] Dict: 12/13/161908 Trans: 12/13/161911 AS6 [id number] Interpreted by: HEATHER VOGT MD Departure Impression Impression: Primary Impression: Suicidal ideation Additional Impressions: Alcohol intoxication Qualified Codes: F10.929 - Alcohol use, unspecified with intoxication, unspecified Injury of left foot Qualified Codes: S99.922A - Unspecified injury of left foot, initial encounter Disposition: 01 HOME, SELF-CARE Condition: Improved Departure-Patient Inst. Decision time for Depature: 21:35 Referrals: TANIKA LYON MD (PCP/Family) Primary Care Physician Patient Instructions: ALCOHOL AND SUBSTANCE ABUSE Add. Discharge Instructions: Follow-up at [facility] as soon as possible for assistance with alcohol cessation. Call [phone] or [phone] if you have any further difficulties with suicidal thoughts. All discharge instructions reviewed with patient and/or family. Voiced understanding. REBEKA PEREZ MD Dec 13, 2016 18:39
[2016-12-13 18:44] LABS: ALANINE AMINOTRANSFERASE 19 U/L (0-55); ALBUMIN 3.6 GM/DL (3.2-4.5); ANION GAP 12 MMOL/L (5-14); ASPARTATE AMINO TRANSFERASE 26 U/L (5-34); BILIRUBIN,TOTAL 0.2 MG/DL (0.1-1.0); BLOOD UREA NITROGEN 11 MG/DL (7-18); BUN/CREATININE RATIO 13; CARBON DIOXIDE 24 MMOL/L (21-32); CHLORIDE 109 MMOL/L (98-107); CREATININE SERUM 0.83 MG/DL (0.60-1.30); GFR ESTIMATED > 60; GLUCOSE 99 MG/DL (70-105); SALICYLATE < 5.0 MG/DL (5.0-20.0); SODIUM 145 MMOL/L (135-145); TOTAL PROTEIN 6.8 GM/DL (6.4-8.2)
[2016-12-13 18:45] LABS: ACETAMINOPHEN < 10 UG/ML (10-30)
[2016-12-13 18:46] LABS: ALCOHOL 347 MG/DL (<10)
[2016-12-13 19:04] LABS: THYROID STIMULATING HORMONE 0.49 UIU/ML (0.35-4.94)
--- NOTE | 2016-12-13 19:13 | Diagnostic Imaging Report ---
INDICATION: Left foot pain. COMPARISON: Left ankle radiographs performed concurrently. TECHNIQUE: Three nonweightbearing views of the left foot. FINDINGS: No acute fracture or traumatic malalignment by nonweightbearing imaging. Mild degenerative changes of the great toe MTP joint are noted. Joint spaces are mildly narrowed at the tarsometatarsal articulations as well as within the midfoot. IMPRESSION: 1. No acute fracture or traumatic malalignment of the left foot. 2. 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 Dictated by: Dictated on workstation # [id number]
--- NOTE | 2016-12-13 19:14 | Diagnostic Imaging Report ---
EXAMINATION: Left ankle series. INDICATION: Twisted ankle. Pain and swelling. FINDINGS: There is some soft tissue swelling overlying both the lateral and medial aspect of the ankle. Distal tibia and fibula demonstrate no cortical disruption to suggest acute fracture. The talar dome is normal in morphology. The visualized bones of the foot are unremarkable. IMPRESSION: Ankle soft tissue swelling without acute fracture or evidence of traumatic malalignment. Dictated by: Dictated on workstation # [id number]
--- NOTE | 2016-12-13 19:55 | Diagnostic Imaging Report ---
EXAMINATION: Portable chest INDICATION: Cough. Comparison made to the prior study from November 22, 2016. FINDINGS: Compared to prior study, there has not been evidence of interval change. Heart size is stable without evidence of failure. There is no focal pulmonary infiltrate or consolidation demonstrated. There is no effusion or pneumothorax. There are surgical clips along the left lateral chest wall. IMPRESSION: Stable appearance of the chest. There is no radiographic evidence of an acute cardiopulmonary process. Dictated by: Dictated on workstation # [id number]
[2016-12-13 21:19] LABS: BILIRUBIN,URINE NEGATIVE (NEGATIVE); KETONES,URINE NEGATIVE (NEGATIVE); LEUKOCYTE ESTERASE ,URINE NEGATIVE (NEGATIVE); NITRITE,URINE NEGATIVE (NEGATIVE); PH,URINE 6 (5-9); PROTEIN,URINE NEGATIVE (NEGATIVE); UROBILINOGEN,URINE NORMAL (NORMAL)
[2016-12-13 21:27] LABS: WBC,URINE RARE /HPF
[2016-12-13 21:42] VITALS: BP 166/98
== END 2016-12-13 21:41 | disposition home or self-care (01) ==
LOC: EDUNIT# 17:53 → ER 17:54
DX: S99.922A Unspecified injury of left foot, initial encounter (principal); R45.851 Suicidal ideations; I10 Essential (primary) hypertension; F10.129 Alcohol abuse with intoxication, unspecified; K21.9 Gastro-esophageal reflux disease without esophagitis; H54.42 Blindness, left eye, normal vision right eye; F41.8 Other specified anxiety disorders; F17.210 Nicotine dependence, cigarettes, uncomplicated; Z85.3 Personal history of malignant neoplasm of breast; Z90.12 Acquired absence of left breast and nipple
CPT/HCPCS: 36415; 71010; 73610; 73630; 80053; 80306; 80320; 80329; 81000; 84443; 85025; 99283

== ENCOUNTER → 2017-01-15 | Outpatient (CLI) | payer MEDICARE ==
[~2017-01-15] MED LIST changes: -METO-274 PO; +METO-395 PO
[2017-01-23 08:41] LABS: Q FEVER 1 AB Positive (Negative)
[2017-01-23 08:42] LABS: Q FEVER 2 AB Positive (Negative)
== END ==
LOC: LAB 15:05
PROVIDERS: ATTEND Family Medicine
DX: A78 Q fever (principal)
CPT/HCPCS: 36415; 86638